=== PATIENT | male | born 1980 | race Caucasian/White ===

== ENCOUNTER 2019-01-31 16:22 | Emergency (ER) | payer OTHER ==
[~2019-01-31] VITALS: Ht 170.2 cm; Wt 79.4 kg
[2019-01-31 16:35] VITALS: BP 145/88
--- NOTE | 2019-01-31 16:41 | NUR ---
38 Y/O M C/O RIGHT HAND PAIN X TODAY. PER PT POLISHING AND HIT RT HAND WITH METAL, SUSTAINING CRUSH INJURY APPROXIMATELY 0900 TODAY. STATES NUMBNESS TO TIP OF RT 4TH DIGIT. RT 4TH DIGIT MCP AND PIP PAIN AND LIMITED ROM 2/2 PAIN. BRUISING NOTED TO PALM OF HAND. WENT TO URGENT CARE TODAY WHICH REFERRED PT TO HERE FOR XRAY. HX- HYPERCHOL RX- LIPITOR ALL-PCN
--- NOTE | 2019-01-31 17:06 | NUR ---
[employer] support technician at bedside.
--- NOTE | 2019-01-31 17:08 | NUR ---
Gladis archer in ED - 01/31/19 at 1708 by ALOK xray at bedside.
--- NOTE | 2019-01-31 17:41 | NUR ---
EMT AT BEDSIDE FOR SPLINT.
[2019-01-31 17:50] VITALS: BP 145/88
--- NOTE | 2019-01-31 17:50 | NUR ---
Patient discharged with v/s stable. Written and verbal after care instructions given and explained. Patient verbalized understanding. Ambulatory with steady gait. All questions addressed prior to discharge. Advised to follow up with PMD. CD IMAGES PROVIDED TO PT.
== END 2019-01-31 17:50 | disposition home or self-care (01) ==
LOC: MED 16:22
DX: S62.614A Displaced fracture of proximal phalanx of right ring finger, initial encounter for closed fracture (principal); E78.00 Pure hypercholesterolemia, unspecified; Z88.0 Allergy status to penicillin; X58.XXXA Exposure to other specified factors, initial encounter; Y93.89 Activity, other specified; Y92.89 Other specified places as the place of occurrence of the external cause; Y99.8 Other external cause status
CPT/HCPCS: 29130; 73130; 99283; Q0092

== ENCOUNTER 2020-09-26 18:14 | Emergency (ER) | payer OTHER ==
[~2020-09-26] VITALS: Ht 175.3 cm; Wt 90.7 kg
[2020-09-26 18:59] VITALS: BP 122/77
--- NOTE | 2020-09-26 19:03 | NUR ---
PT TO WAIT IN LOBBY.
[2020-09-26 19:40] LABS: APPEARANCE,URINE SL CLOUDY (CLEAR); BILIRUBIN,URINE NEGATIVE (NEGATIVE); BLOOD, URINE NEGATIVE (NEGATIVE); COLOR,URINE YELLOW (YELLOW); LEUKOCYTE ESTERASE ,URINE NEGATIVE (NEGATIVE); NITRITE, URINE NEGATIVE (NEGATIVE); PH,URINE 7.5 (5.0-9.0); UGLUCOSE NEGATIVE (NEGATIVE)
--- NOTE | 2020-09-26 19:55 | NUR ---
ERMD ASSESSING PT IN TRIAGE.
--- NOTE | 2020-09-26 20:00 | NUR ---
PT RETURNED TO LOBBY.
[2020-09-26] MEDS ORDERED: KETOROLAC 60 MG/2 ML VIAL IM ONE (20:05)
--- NOTE | 2020-09-26 20:10 | NUR ---
PT AMBULATED TO BED 05.
--- NOTE | 2020-09-26 20:15 | NUR ---
39 Y/O MALE C/O LEFT TESTICULAR PAIN X3DAYS INTERMITTENT WORST WITH HEAVY LIFTING. PT STATES +DYSURIA. 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 DENIES N/V, DENIES FEVER/CHILLS. PT. RATES PAIN AT 10/10 ON THE PAIN SCALE AT THIS TIME. AAOX4 WITH EVEN AND STEADY GAIT; HR EVEN AND REGULAR; PT DENIES ANY FEVER, CP, SOB, OR COUGH AT THIS TIME; VSS; PATIENT POSITIONED FOR COMFORT; HOB ELEVATED; BEDRAILS UP X2; BED DOWN. ER MD MADE AWARE OF PT STATUS. DENIES PMH ALLERGIES: MIKE
--- NOTE | 2020-09-26 20:20 | NUR ---
ULTRASOUND AT BEDSIDE
--- NOTE | 2020-09-26 21:40 | NUR ---
PT. SITTING ON BED, VOICES NO COMPLAINTS AT THIS TIME. AWAITING FOR DISPOSITION.
[2020-09-26] MEDS ORDERED: DOXY-487 PO (21:58)
[2020-09-26] MEDS ORDERED: NAPR-54 PO (21:58)
[2020-09-26 22:29] VITALS: BP 128/68
--- NOTE | 2020-09-26 22:29 | NUR ---
Patient discharged with v/s stable. Written and verbal after care instructions given and explained. Patient alert, oriented and verbalized understanding of instructions. Ambulatory with steady gait. All questions addressed prior to discharge. ID band removed. Patient advised to follow up with PMD. Rx of DOXYCYCLINE, NAPROXEN given. Patient educated on indication of medication including possible reaction and side effects. Opportunity to ask questions provided and answered.
== END 2020-09-26 22:29 | disposition home or self-care (01) ==
LOC: MED 18:14
DX: N45.2 Orchitis (principal); Z98.890 Other specified postprocedural states; Z79.899 Other long term (current) drug therapy; Z88.0 Allergy status to penicillin
CPT/HCPCS: 76870; 81003; 96372; 99284; J1885